=== PATIENT | male | born 1950 | race Two or more races ===

== ENCOUNTER → 2024-09-17 | Outpatient (CLI) | payer OTHER, SELFPAY ==
--- NOTE | 2024-09-17 15:30 | XR_ITS ---
MRI shoulder, left, without contrast. Date and time: September 17, 2024 1538 hours INDICATIONS: Left shoulder blade pain 2 months numbness and paresthesias in the arm radiating to the elbow Technique: Multiple axial, sagittal and coronal sections of the shoulder have been obtained. Siemens high-resolution 1.5 Anu MRI scanner is utilized. Axial fat-suppressed sections, TR 2350, TE 18 T2-weighted coronal fat-saturated images, TR 3500, TE 7100 T1-weighted coronal images, TR 500, TE 15 T2-weighted sagittal fat-saturated images, TR 3500, TE 57 T1-weighted sagittal sections, TR 504, TE 13. Findings: Supraspinatus tendon insertion 10 mm partial-thickness articular surface tear, coronal image 11 Infraspinatus tendon insertion is intact. Subscapularis insertion is intact. Subscapularis bursa is not seen Long head of the biceps is in the bicipital groove. No definite tear of the biceps superior labral anchor is seen. Retraction of the musculotendinous junction of the rotator cuff is not seen . Tendinosis pattern is prominent. Distance between the acromium and humeral head is 9 mm Atrophy of the supraspinatus muscle is mild . Atrophy of the infraspinatus muscle is mild. Sagittal sections demonstrate a horizontal acromion. Acromioclavicular joint demonstrates prominent osteoarthritis. Osacromiale is not identified. Fraying and irregularity anterior superior labral margins. Bony glenoid fossa on the sagittal sections does not demonstrate osseous defect. Occult fracture or area of avascular necrosis is not seen. Acromioclavicular joint separation is not visible. Defect in the posterolateral margin of the humeral head is not seen Impression: 10 mm partial-thickness articular surface tear supraspinatous Fraying and irregularity anterior superior labral margins Prominent rotator cuff tendinosis Significant osteoarthritis acromioclavicular joint
== END | disposition home or self-care (01) ==
LOC: SMRI 14:41
PROVIDERS: Referring Provider Nurse Practitioner Family; Visit Provider Nurse Practitioner Family
DX: M75.102 Unspecified rotator cuff tear or rupture of left shoulder, not specified as traumatic (principal); M19.012 Primary osteoarthritis, left shoulder; M67.814 Other specified disorders of tendon, left shoulder; M25.812 Other specified joint disorders, left shoulder
CPT/HCPCS: 73221

== ENCOUNTER 2024-12-30 09:58 | Emergency (ER) | payer OTHER, SELFPAY ==
[2024-12-30 10:16] VITALS: BP 123/69; PULSE 57; RESP 18; TEMP 36.7; O2SAT 98; BMI 27.2
--- NOTE | 2024-12-30 10:27 | XR_ITS ---
Examination: CT abdomen and pelvis without contrast. Coronal 3-D reconstructions. Sagittal 2-D reconstructions. Date and time of exam:December 30, 2024 at 1056 hours Comparison May 08, 2014 INDICATIONS: Onset mid and lower pelvic pain beginning 5 days ago CTDI: vol (mGy): 9.93 DLP: (mGycm): 658 Technique: Axial images of the abdomen have been obtained, 3 mm slice thickness Intravenous contrast material has not been administered. Low dose protocols were performed. One or more of the following dose reduction techniques were used; automated exposure control, adjustment of the mA and/or KV according to patient size, use of iterative reconstruction technique. Findings: 8 mm pulmonary nodule right lower lobe image 111 2 mm pulmonary nodule left upper lobe image 13 Significant calcification left main left anterior descending coronary arteries Mild enlargement cardiac contour The liver is irregular in contour, no focal liver lesions No gallstones Spleen is not enlarged No pancreatic or adrenal mass Aoyv-ta-[id number] bilateral renal parenchymal scar formation with perinephric stranding No renal or ureteral calculi, no hydronephrosis Abdominal aortic calcification no aneurysmal dilatation Normal appendix 12 mm fat-containing umbilical hernia No bowel obstruction No diverticulitis Prostatomegaly mediolateral dimension 5.7 cm No bladder mass, minimal thickening of the bladder wall Transpedicular lumbar fusion L3-L4 with satisfactory alignment Advanced degenerative disc disease L4-L5 Moderate bilateral hip osteoarthritis IMPRESSION: Noncalcified pulmonary nodules as above, consider elective CT chest without contrast follow-up Significant calcification left main and left anterior descending coronary artery. Suspicious for primary hepatocellular disease [id number] bilateral linear parenchymal scar formation with perinephric stranding, consider urinary tract infection Normal appendix Significant prostatomegaly with minimal thickening of the urinary bladder wall, consider early urinary tract outflow obstruction secondary to prostatomegaly
--- NOTE | 2024-12-30 10:33 | PD.EDRME ---
Rapid Medical Screening Exam RME Arrival date/time: 12/30/24 09:58 74-year-old male presents to the emergency department with complaints of pelvic pain pain with urination and defecation. hx of prostate issues. I have greeted and performed a focused initial assessment of this patient. Initial appropriate labs ordered at this time. A comprehensive ED assessment and evaluation of the patient and analysis of all test and completion of medical decision making process will be conducted by additional ED provider. Chief Complaint: Abdominal Pain Time Seen by Provider: 12/30/24 10:16 Vital signs: Vital Signs Temperature 98.0 F 12/30/24 10:16 Pulse Rate 57 L 12/30/24 10:16 Respiratory Rate 18 12/30/24 10:16 Blood Pressure 123/69 12/30/24 10:16 Pulse Oximetry (%) 98 12/30/24 10:16 Oxygen Delivery Method Room Air 12/30/24 10:16
[2024-12-30 11:14] LABS: Basophils % (Auto) 0 % (0-2.5); Eosinophils # (Auto) 0.3 Thou/mm3 (0.0-0.5); Eosinophils % (Auto) 5 % (0-10); Hematocrit 39.8 % (41.0-53.0); Hemoglobin 13.1 g/dL (13.5-16.0); Immature Granulocytes % (Auto) 0 % (0-0); Immature Granulocytes Auto 0.02 Thou/mm3 (0.00-0.00); Lymphocytes # (Auto) 2.1 Thou/mm3 (1.0-4.8); Lymphocytes % (Auto) 29 % (10-50); Mean Corpuscular HGB Conc 32.9 g/dl (31.0-37.0); Mean Corpuscular Hemoglobin 27.2 pg (25.0-35.0); Mean Corpuscular Volume 83 fL (80-100); Monocytes # (Auto) 0.4 Thou/mm3 (0.0-0.8); Monocytes % (Auto) 6 % (0-12); Neutrophils # (Auto) 4.4 Thou/mm3 (1.8-7.7); Neutrophils % (Auto) 61 % (37-80); Nucleated Red Blood Cell % 0 /100 WBC (0); Platelet Count 238 Thou/mm3 (140-440); Red Blood Count 4.82 Miln/mm3 (4.50-5.90); White Blood Count 7.3 Thou/mm3 (3.8-10.6)
[2024-12-30 11:20] LABS: Prothrombin Time 11.2 Seconds (9.0-12.2)
[2024-12-30 11:24] LABS: Alanine Aminotransferase 44 U/L (10-49); Albumin, Serum 4.4 gm/dL (3.4-4.8); Albumin/Globulin Ratio 1.6 (1.2-2.2); Alkaline Phosphatase 94 U/L (46-116); Anion Gap 6 (7-16); Aspartate Amino Transferase 28 U/L (0-34); BUN/Creatinine Ratio 13 Ratio (12-20); Bilirubin,Total 0.7 mg/dL (0.3-1.2); Blood Urea Nitrogen 16 mg/dL (9-23); Calcium 9.9 mg/dL (8.3-10.6); Calcium (Corrected) 9.9 mg/dL (8.5-10.1); Carbon Dioxide 30.8 mMol/L (20.0-31.0); Chloride 103 mMol/L (98-107); Creatinine (Component) 1.2 mg/dL (0.6-1.3); Estimated Creatinine Clearance 56.6 mL/min (>60); Globulin 2.8 gm/dL (2.3-3.5); Glucose 121 mg/dL (74-106); Lipase 101 U/L (12-53); Osmolality,Calculated 281 (275-295); Potassium 4.9 mMol/L (3.4-5.1); Prostate Specific Antigen 0.57 ng/mL (0-4.00); Sodium 140 mMol/L (136-145); Total Protein 7.2 gm/dL (5.7-8.2); eGFR > 60 See Note
[2024-12-30 11:30] LABS: Collection Type, Urine Clean Catch
[2024-12-30 11:37] LABS: Bilirubin,Urine Negative (Negative); Blood,Urine Negative (Negative); Clarity,Urine Clear (Clear/Hazy); Color,Urine Colorless (Lt Yel-Yel); Glucose, Urine Negative (Negative); Hyaline Casts,Urine < 1 /hpf (0-1); Ketones,Urine Negative (Negative); Leukocyte Esterase,Urine Negative (Negative); Nitrite,Urine Negative (Negative); PH,Urine 6.5 (5.0-7.0); Protein,Urine Negative (Neg - Trace); RBC,Urine 1 /hpf (0-3); Specific Gravity,Urine 1.008 (1.001-1.035); Squamous Epithelial Cell,Urine < 1 /hpf (0-5); Urobilinogen,Urine Negative mg/dL (0.0-1.0); WBC,Urine < 1 /hpf (0-5)
--- NOTE | 2024-12-30 12:16 | PD.EDABDPN ---
ED Abdominal Pain RME/HPI General Chief Complaint: Abdominal Pain Stated complaint: LOWER ABDOMINAL PAIN Time seen by provider: 12/30/24 10:16 Arrival date/time: 12/30/24 09:58 74 year old male with past medical history Turp surgery, enlarge prostate, OA, DDD, UVJ stone, sciatica, constipation present to emergency room with c/o of lower abdominal pain for 1 week. pt has an appointment with PCP tomorrow. pt able to urinated without complications but report feeling sensation of normally fully BM's LOCATION: lower abdominal SEVERITY: Symptoms are described as being severe with limitations on activities of daily living QUALITY: Symptoms are described as being cramping CONTEXT: The patient is unable to identify any inciting events. DURATION/TIMING: The symptoms started approximately 7 day ago and have been waxing/waning but always present without ever completely resolving. ASSOCIATED SYMPTOMS: The patient is unable to identify any other associated symptoms. MODIFYING FACTORS: The patient is unable to identify any alleviating or aggravating symptoms. PERTINENT ROS: no fevers, no anorexia, no nausea or vomiting, no diarrhea, no ripping or tearing sensations, no syncope or presyncopal symptoms, denies trauma, denies genital pain, UTI sx REVIEW OF SYSTEMS: See History of Present Illness - with the exception of those mentioned in the history of present illness, all other systems reviewed and reported as negative GENERAL: In general the patient is awake, interactive, in an emergency department gurney. HEAD/EYES/EARS/NOSE/THROAT: normo-cephalic, atraumatic, mucus membranes are moist, anicteric, palpebral conjunctiva is pink, trachea is midline. CARDIOVASCULAR: regular rate and regular rhythm, no murmurs, heart sounds are not distant, strong pulses in all four extremities that are equal and symmetric bilateral upper and lower extremities, normal capillary refill. CHEST/PULMONARY: normal chest rise and fall, good air movement, clear to auscultation bilaterally, normal inspiratory to expiratory ratios without evidence of respiratory distress. NECK: No midline/Paraspinal tenderness, no step off ROM/Strenght intact No Kernig and bruzinski sign. No trauma ABDOMEN: soft, lower abdominal tenderness, no cva tenderness, no rash no masses appreciated BACK: normal range of motion without pain. NEUROLOGICAL: cranio-facial features are symmetric, moves all four extremities equally without obvious limitations or weakness. EXTREMITY: no tenderness to palpation over the long bones or large joints of the bilateral upper and lower extremities, no joint swelling, no joint erythema, no signs of trauma, no unilateral leg swelling and no peripheral edema. SKIN: warm, dry, well-perfused, no jaundice, no rash, no telangiectasias or petechia. PSYCH: calm, cooperative, no evidence of psychosis or agitation RME / HPI RME / HPI narrative: 12/30/24 09:58 74-year-old male presents to the emergency department with complaints of pelvic pain pain with urination and defecation. hx of prostate issues. I have greeted and performed a focused initial assessment of this patient. Initial appropriate labs ordered at this time. A comprehensive ED assessment and evaluation of the patient and analysis of all test and completion of medical decision making process will be conducted by additional ED provider. Related Data Home Medications ?Medication ?Instructions ?Recorded ?Confirmed finasteride 5 mg tablet (Proscar) 5 mg PO QDAY #0 tabs 05/21/15 08/19/22 tamsulosin 0.4 mg capsule (Flomax) 0.4 mg PO BID ##0 05/23/15 08/19/22 montelukast 10 mg tablet 10 mg PO HS #0 tabs 05/01/16 08/23/22 (Singulair) atenolol 50 mg tablet (Tenormin) 50 mg PO QAM #0 tabs 10/16/17 08/23/22 atorvastatin 40 mg tablet (Lipitor) 40 mg PO HS #0 tabs 10/16/17 08/19/22 hydrochlorothiazide 25 mg tablet 25 mg PO QAM #0 tabs 10/16/17 06/04/22 metformin 1,000 mg tablet 1,000 mg PO BID #0 tabs 10/16/17 08/19/22 (Glucophage) nitroglycerin 0.4 mg sublingual 0.4 mg SL PRN PRN CHEST TIGHTNESS 10/16/17 08/19/22 tablet (Nitrostat) #0 tabs pregabalin 75 mg capsule (Lyrica) 75 mg PO BID 12/16/17 08/19/22 albuterol sulfate 90 mcg/actuation 2 puff inhalation Q6H PRN Wheezing 09/11/18 08/19/22 aerosol inhaler cyclobenzaprine 5 mg tablet 10 mg PO DAILY 09/11/18 08/19/22 lisinopril 5 mg tablet 5 mg PO QDAY 09/12/18 08/23/22 omeprazole 40 mg capsule,delayed 40 mg PO QDAY 07/17/21 08/19/22 release insulin detemir U-100 100 unit/mL 15 unit subcut QPM 11/04/21 08/19/22 subcutaneous solution (Levemir U-100 Insulin) naproxen 500 mg tablet 500 mg PO BID PRN Pain 11/04/21 08/19/22 sumatriptan succinate 25 mg tablet 25 mg PO Q2H PRN Migraine Headache 11/04/21 08/19/22 glipizide 5 mg tablet 5 mg PO BID 12/11/21 08/19/22 dulaglutide 1.5 mg/0.5 mL 1 ea subcut QWEEK 06/04/22 08/19/22 subcutaneous pen injector (Trulicity) Allergies Allergy/AdvReac Type Severity Reaction Status Date / Time levofloxacin Allergy Severe Rash Verified 12/30/24 10:01 Sulfa (Sulfonamide Allergy Severe Rash Verified 12/30/24 10:01 Antibiotics) ciprofloxacin Allergy Mild Rash Verified 12/30/24 10:01 Course Course Course Narrative: review labs, CT Quality Measures none Orders Category Date Time Status NPO STAT Care 12/30/24 10:[address] abdomen pelvis wo con Stat Exams 12/30/24 10:27 Completed CBC Stat Lab 12/30/24 10:51 Completed Comprehensive Metabolic Panel Stat Lab 12/30/24 10:51 Completed Lipase Stat Lab 12/30/24 10:51 Completed PSA [Prostate Specific Antigen] Stat Lab 12/30/24 10:51 Completed Prothrombin Time with INR Stat Lab 12/30/24 10:51 Completed Urinalysis Stat Lab 12/30/24 11:00 Completed Reevaluation(s) Reevaluation #1: pt is comfortable to go home, labs and CT report given to patient to follow up with PCP as schedule tomorrow Vital Signs Vital signs: Vital Signs Temperature 98.0 F 12/30/24 10:16 Pulse Rate 57 L 12/30/24 10:16 Respiratory Rate 18 12/30/24 10:16 Blood Pressure 123/69 12/30/24 10:16 Pulse Oximetry (%) 98 12/30/24 10:16 Oxygen Delivery Method Room Air 12/30/24 10:16 Abdominal Pain MDM MDM Narrative MDM Narrative:: Patient?s symptoms not typical for emergent causes of abdominal pain such as, but not limited to, appendicitis, abdominal aortic aneurysm, surgical biliary disease, pancreatitis, SBO, mesenteric ischemia, serious intra-abdominal bacterial illness, genital torsion. unlikely for obstruction bladder due to patient able to urinated without complications.? Doubt atypical ACS. Pt tolerating PO. Disposition: Patient will be discharged with strict return precautions and follow up with primary MD within 12-24 hours for further evaluation. Patient understands that this still may have an early presentation of an emergent medical condition such as appendicitis that will require a recheck. Patient data External records reviewed:: [facility] previous records Clinical information provided by:: patient and family Social determinants that could affect healthcare access:: none Patient has the following chronic illnesses:: enlarge prostate, UVJ stone How is presenting disease/condition affected by chronic disease/condition?: uneffected by Evaluation data The following diagnostics were reviewed and interpreted by me:: lab results and radiology exam(s) Lab and/or radiology exams considered but not ordered:: n/a Interpretation Summary: CT: Findings: 8 mm pulmonary nodule right lower lobe image 111 2 mm pulmonary nodule left upper lobe image 13 Significant calcification left main left anterior descending coronary arteries Mild enlargement cardiac contour The liver is irregular in contour, no focal liver lesions No gallstones Spleen is not enlarged No pancreatic or adrenal mass Cljo-cc-zovwwimb bilateral renal parenchymal scar formation with perinephric stranding No renal or ureteral calculi, no hydronephrosis Abdominal aortic calcification no aneurysmal dilatation Normal appendix 12 mm fat-containing umbilical hernia No bowel obstruction No diverticulitis Prostatomegaly mediolateral dimension 5.7 cm No bladder mass, minimal thickening of the bladder wall Transpedicular lumbar fusion L3-L4 with satisfactory alignment Advanced degenerative disc disease L4-L5 Moderate bilateral hip osteoarthritis IMPRESSION: Noncalcified pulmonary nodules as above, consider elective CT chest without contrast follow-up Significant calcification left main and left anterior descending coronary artery. Suspicious for primary hepatocellular disease Tlfk-tk-tbyywdjy bilateral linear parenchymal scar formation with perinephric stranding, consider urinary tract infection Normal appendix Significant prostatomegaly with minimal thickening of the urinary bladder wall, consider early urinary tract outflow obstruction secondary to prostatomegaly cbc/cmp/psa wnl urine no infection Medications / Prescriptions Medications or Prescriptions considered but not ordered:: n/a Medication administrations:: n/a Consultations Consultation(s) initiated? (list below): No Diagnosis Differential diagnosis abdominal pain: abdominal pain, acute appendicitis, calculus of kidney, constipation, diverticulitis, gastroenteritis, pancreatitis, small bowel obstruction and other (UTI, UVJ stone, prostatomegaly) Most likely diagnosis given after review of the tests above:: abd pain, ?prostatomegaly Admission Indicated Admission indicated?: not indicated Admission Request Was there a request for admission?: No Disposition Plan Disposition Plan: Discharge Discharge Attestation Discharge Attestation: The patient and all family members were given an opportunity to ask questions and understood the discharge instructions. Discharge instructions specifically effects, indications for sooner follow up or return to the emergency department, and the expected course of current diagnosis. Patient condition: Stable Discharge Plan Plan Patient Disposition: HOME (Self Care) Health Concerns: Follow up with PCP as schedule Return to ED if symptoms worsen Prescriptions/Referrals Prescriptions/Med Rec: No Action finasteride [Proscar] 5 MG tablet 5 mg PO QDAY Qty: 0 tamsulosin [Flomax] 0.4 MG capsule,extended release 24hr 0.4 mg PO BID Qty: 0 montelukast [Singulair] 10 MG tablet 10 mg PO HS Qty: 0 atorvastatin [Lipitor] 40 MG tablet 40 mg PO HS Qty: 0 metformin [Glucophage] 1,000 MG tablet 1,000 mg PO BID Qty: 0 nitroglycerin [Nitrostat] 0.4 MG tablet, sublingual 0.4 mg SL PRN PRN (Reason: CHEST TIGHTNESS) Qty: 0 Rx Instructions: max 3 doses hydrochlorothiazide 25 MG tablet 25 mg PO QAM Qty: 0 atenolol [Tenormin] 50 MG tablet 50 mg PO QAM Qty: 0 pregabalin [Lyrica] 75 mg Capsule 75 mg PO BID sumatriptan succinate 25 mg Tablet 25 mg PO Q2H PRN (Reason: Migraine Headache) Levemir U-100 Insulin 100 unit/mL Solution 15 unit SUBCUT QPM Patient Comments: 15units in morning and 10 HS naproxen 500 mg Tablet 500 mg PO BID PRN (Reason: Pain) Trulicity 1.5 mg/0.5 mL pen injector 1 ea SUBCUT QWEEK Patient Comments: INJECT 1 PEN POR V A SUBCUT IZABELLA ONCE A WEEK albuterol sulfate 90 mcg/actuation Hfa Aerosol Inhaler 2 puff INHALATION Q6H PRN (Reason: Wheezing) cyclobenzaprine 5 mg Tablet 10 mg PO DAILY lisinopril 5 mg Tablet 5 mg PO QDAY omeprazole 40 mg Capsule,Delayed Release(Dr/Ec) 40 mg PO QDAY glipizide 5 mg Tablet 5 mg PO BID Referrals: Ricarda Dominguez NP [Primary Care Provider] - In 1 week Problem List Clinical Impression: Abdominal pain Patient/Caregiver Discharge Instructions Education Materials: Abdominal Pain Print Language: Greek Stand Alone Forms: [employer] Award Info., Patient Portal Info Letter
[2024-12-30 12:27] VITALS: BP 138/69; PULSE 60; RESP 18; TEMP 36.7; O2SAT 98
== END 2024-12-30 12:52 | disposition home or self-care (01) ==
PROVIDERS: Nurse Practitioner Primary Care; Emergency Provider Emergency Medicine; PCP Nurse Practitioner Family
DX: R10.30 Lower abdominal pain, unspecified (principal); N40.0 Benign prostatic hyperplasia without lower urinary tract symptoms; R91.8 Other nonspecific abnormal finding of lung field; I25.10 Atherosclerotic heart disease of native coronary artery without angina pectoris; N28.89 Other specified disorders of kidney and ureter; N32.89 Other specified disorders of bladder
CPT/HCPCS: 36415; 74176; 80053; 81001; 83690; 84153; 85025; 85610; 99284

== ENCOUNTER → 2025-02-07 | Outpatient (CLI) | payer OTHER, SELFPAY ==
--- NOTE | 2025-02-07 12:00 | XR_ITS ---
Examination: CT chest, without intravenous contrast. Sagittal and coronal 2-D reconstructions. Exam date and time: February 07, 2025 1256 hours INDICATIONS: Diagnosis smoking history 10 years CTDI:vol (mGy) 11.8 DLP: (mGycm) 459 Technique: Multiple 3.0 mm axial sections of the chest to been obtained. Bone and lung density settings are obtained. Sagittal and coronal 2-D reconstructions have been obtained. Low dose protocols were performed. One or more of the following dose reduction techniques were used; automated exposure control, adjustment of the mA and/or KV according to patient size, use of iterative reconstruction technique. Findings: No thoracic aortic aneurysm dilatation. Pulmonary artery segments are not enlarged. Significant calcification left main left anterior descending coronary artery. 2 mm pulmonary nodule left midlung image 152 2 mm pulmonary nodule anterior segment left upper lobe image 174 4 mm pulmonary nodule right lower lobe image 256 No pneumonia or pulmonary edema No visualized liver or splenic lesions No gallstones No pancreatic or adrenal mass IMPRESSION: Noncalcified pulmonary nodules as above, with this study as baseline recommend continued 6 month follow-up CT chest without contrast
== END | disposition home or self-care (01) ==
PROVIDERS: PCP Nurse Practitioner Family; Referring Provider Nurse Practitioner Family; Visit Provider Nurse Practitioner Family
DX: R91.8 Other nonspecific abnormal finding of lung field (principal)
CPT/HCPCS: 71250

== ENCOUNTER → 2025-03-13 | Outpatient (CLI) | payer OTHER, SELFPAY ==
--- NOTE | 2025-03-13 12:52 | XR_ITS ---
Examination: Bilateral wrists 6 views TECHNIQUE: AP oblique lateral each wrist total 6 views Date and time: March 13, 2025 1306 hours INDICATION: Wrist pain months. FINDINGS: Mild osteopenia Mild osteoarthritis radiocarpal, navicular trapezium, first carpometacarpal joints No erosive arthritis Soft tissue vascular calcification No fractures IMPRESSION: Osteoarthritis as above
--- NOTE | 2025-03-13 12:52 | XR_ITS ---
Examination: Bilateral hands, 6 views. Technique: AP, Oblique, Lateral each hand total 6 views Date and time of exam: March 13, 2025 12:59 PM Findings: Mild juxta-articular bone demineralization Mild osteoarthritis interphalangeal joints bilaterally No erosive arthritis No fractures No opaque foreign bodies IMPRESSION: Mild osteoarthritis
== END | disposition home or self-care (01) ==
PROVIDERS: PCP Family Medicine; Referring Provider Nurse Practitioner Gerontology; Visit Provider Nurse Practitioner Gerontology
DX: M19.042 Primary osteoarthritis, left hand (principal); M19.041 Primary osteoarthritis, right hand; M19.032 Primary osteoarthritis, left wrist; M19.031 Primary osteoarthritis, right wrist
CPT/HCPCS: 73110; 73130

== ENCOUNTER 2025-04-07 19:19 | Emergency (ER) | payer OTHER, SELFPAY ==
[2025-04-07 19:21] VITALS: BMI 26.7
[2025-04-07 19:39] VITALS: BP 160/69; PULSE 67; RESP 17; TEMP 36.9; O2SAT 97
--- NOTE | 2025-04-07 19:39 | PD.EDMALE ---
ED Male Genitalurinary RME/HPI General Chief complaint: Urogenital-Male Stated complaint: UNABLE TO URINATE, BURNING WITH URINATION Time Seen by Provider: 04/07/25 19:24 Source: patient, RN notes reviewed and old records reviewed Arrival date/time: 04/07/25 19:19 Mode of arrival: ambulatory Limitations: no limitations RME / HPI RME / HPI Narrative: 74yom presents to ED for pain with urination and decreased urine flow since this morning. Hx of BPH and TURP managed by Dr. Jaquez. No fever, n/v, abdominal/flank pain or hematuria reported. 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 Home Medications ?Medication ?Instructions ?Recorded ?Confirmed finasteride 5 mg tablet (Proscar) 5 mg PO QDAY #0 tabs 05/21/15 08/19/22 tamsulosin 0.4 mg capsule (Flomax) 0.4 mg PO BID ##0 05/23/15 08/19/22 montelukast 10 mg tablet 10 mg PO HS #0 tabs 05/01/16 08/23/22 (Singulair) atenolol 50 mg tablet (Tenormin) 50 mg PO QAM #0 tabs 10/16/17 08/23/22 atorvastatin 40 mg tablet (Lipitor) 40 mg PO HS #0 tabs 10/16/17 08/19/22 hydrochlorothiazide 25 mg tablet 25 mg PO QAM #0 tabs 10/16/17 06/04/22 metformin 1,000 mg tablet 1,000 mg PO BID #0 tabs 10/16/17 08/19/22 (Glucophage) nitroglycerin 0.4 mg sublingual 0.4 mg SL PRN PRN CHEST TIGHTNESS 10/16/17 08/19/22 tablet (Nitrostat) #0 tabs pregabalin 75 mg capsule (Lyrica) 75 mg PO BID 12/16/17 08/19/22 albuterol sulfate 90 mcg/actuation 2 puff inhalation Q6H PRN Wheezing 09/11/18 08/19/22 aerosol inhaler cyclobenzaprine 5 mg tablet 10 mg PO DAILY 09/11/18 08/19/22 lisinopril 5 mg tablet 5 mg PO QDAY 09/12/18 08/23/22 omeprazole 40 mg capsule,delayed 40 mg PO QDAY 07/17/21 08/19/22 release insulin detemir U-100 100 unit/mL 15 unit subcut QPM 11/04/21 08/19/22 subcutaneous solution (Levemir U-100 Insulin) naproxen 500 mg tablet 500 mg PO BID PRN Pain 11/04/21 08/19/22 sumatriptan succinate 25 mg tablet 25 mg PO Q2H PRN Migraine Headache 11/04/21 08/19/22 glipizide 5 mg tablet 5 mg PO BID 12/11/21 08/19/22 dulaglutide 1.5 mg/0.5 mL 1 ea subcut QWEEK 06/04/22 08/19/22 subcutaneous pen injector (Trulicity) Allergies Allergy/AdvReac Type Severity Reaction Status Date / Time levofloxacin Allergy Severe Rash Verified 04/07/25 19:21 Sulfa (Sulfonamide Allergy Severe Rash Verified 04/07/25 19:21 Antibiotics) ciprofloxacin Allergy Mild Rash Verified 04/07/25 19:21 Review of Systems Review of Systems Systems Reviewed: All systems reviewed, normal except as documented Constitutional Constitutional: Denies fever(s) Gastrointestinal Gastrointestinal: Denies abdominal pain, Denies nausea and Denies vomiting Genitourinary Genitourinary: Reports difficulty urinating, Reports dysuria, Denies hematuria and Reports oliguria Past Medical History Past Medical History NEUROLOGIC: Positive Migraine (DUE TO SINUS ISSUES) CARDIAC: Positive Cardiac Disorders and Hypertension (TAKES ATENOLOL) GASTROINTESTINAL: Positive Ulcer (TAKES OMEPRAZOLE) GENITOURINARY: Positive Genitourinary Disorders and Benign Prostatic Hyperplasia (TAKES MED) MUSCULOSKELETAL: Positive Musculoskeletal Disorders, Arthritis and Carpal Tunnel Syndrome (LEFT 2011) ENDOCRINE: Positive Endocrine Disorders and Diabetes Mellitus Type 2 (TAKES PO MED AND INSULIN) OTHER HISTORY: Positive Chicken Pox Family History FAMILY HISTORY: Positive Family Cardiac Disorders (MOTHER,FATHER,SISTER,BROTHER) and Family Surgery (FATHER) Surgical History SURGICAL: Positive Carotid Endarterectomy (LEFT (CLOG ARTERY) 06/[address] [facility]) and Transurethral Resection (?) Social History SMOKING STATUS: Never smoker Travel History EBOLA RISK: No ED Exam General Limitations: Present no limitations General appearance: Present alert and in no apparent distress Head Head exam: Present atraumatic and normocephalic Eye Eye exam: Present normal appearance, PERRL and EOMI ENT ENT exam: Present normal exam and mucous membranes moist Neck Neck exam: Present normal inspection and full ROM Chest Chest inspection: Present normal inspection and symmetric chest wall rise Respiratory Respiratory exam: Present normal lung sounds bilaterally; Absent respiratory distress Cardiovascular Cardiovascular exam: Present regular rate and normal rhythm Abdominal Exam Abdominal exam: Present soft; Absent distention, tenderness, guarding or rebound Extremities Exam Extremities exam: Present normal inspection and full ROM Back Exam Back exam: Absent CVA tenderness (R) or CVA tenderness (L) Neurological Exam Neurological exam: Present alert and oriented X3 Psychiatric Psychiatric exam: Present normal affect and normal mood Skin Skin exam: Present warm, dry, intact and normal color Course Course Course Narrative: 2205: 583cc urine on bladder scan, will place bliss Quality Measures none Orders Category Date Time Status Bliss [Urinary Catheter] QS Care 04/07/25 22:08 Completed CBC Stat Lab 04/07/25 19:48 Completed CMP [Comprehensive Metabolic Panel] Stat Lab 04/07/25 19:48 Completed UA [Urinalysis] Stat Lab 04/07/25 20:08 Completed Urine Culture Stat Lab 04/07/25 20:08 Completed Lidocaine Jelly 2% Urojet [Xylocaine Jelly 2% Urojet] Med 04/07/25 23:19 Discontinued See Dose Instructions TOP X1 ONE Vital Signs Vital signs: Vital Signs Temperature 98.5 F 04/07/25 19:39 Pulse Rate 67 04/07/25 19:39 Respiratory Rate 17 04/07/25 19:39 Blood Pressure 160/69 H 04/07/25 19:39 Pulse Oximetry (%) 97 04/07/25 19:39 Oxygen Delivery Method Room Air 04/07/25 19:39 Urogenital - Male MDM Narrative MDM Narrative:: 74yom presents to ED for pain with urination and decreased urine flow since this morning. Hx of BPH and TURP managed by Dr. Jaquez. No fever, n/v, abdominal/flank pain or hematuria reported. 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 UA is negative, urine culture sent and pending. Daughter states patient already has scheduled appt with Dr. Jaquez next week. Stable for dc, RTED precautions given. Patient data External records reviewed:: [facility] previous records (12/30/24 ED visit for abdominal pain) Clinical information provided by:: patient and family (daughter) Social determinants that could affect healthcare access:: none Patient has the following chronic illnesses:: BPH How is presenting disease/condition affected by chronic disease/condition?: caused by Evaluation data The following diagnostics were reviewed and interpreted by me:: lab results Lab and/or radiology exams considered but not ordered:: CT abd/pelvis: non-surgical abdomen on exam Interpretation Summary: UA negative for leuks, nitrities Medications / Prescriptions Medications or Prescriptions considered but not ordered:: no antibiotics recommended at this time Medication administrations:: Medication Administration History Discontinued Medications Lidocaine HCl (Lidocaine Jelly 2% (Urojet) 10 Ml Tube) 0 ml TOP X1 ONE Stop: 04/07/25 23:20 Last Admin: 04/07/25 23:30 Dose: 10 ml Documented By: NATE above medication administered in ED Consultations Consultation(s) initiated? (list below): No Diagnosis Urogenital Male Differential Diagnosis: urinary tract infection, urethritis, epididymitis, prostatitis and acute retention of urine Most likely diagnosis given after review of the tests above:: urinary retention Admission Indicated Admission indicated?: not indicated Admission Request Was there a request for admission?: No Disposition Plan Disposition Plan: Discharge Discharge Attestation Discharge Attestation: The patient and all family members were given an opportunity to ask questions and understood the discharge instructions. Discharge instructions specifically effects, indications for sooner follow up or return to the emergency department, and the expected course of current diagnosis. Patient condition: Stable Discharge Plan Plan Patient Disposition: HOME (Self Care) Patient condition on transfer: Stable Prescriptions/Referrals Prescriptions/Med Rec: No Action finasteride [Proscar] 5 MG tablet 5 mg PO QDAY Qty: 0 tamsulosin [Flomax] 0.4 MG capsule,extended release 24hr 0.4 mg PO BID Qty: 0 montelukast [Singulair] 10 MG tablet 10 mg PO HS Qty: 0 atorvastatin [Lipitor] 40 MG tablet 40 mg PO HS Qty: 0 metformin [Glucophage] 1,000 MG tablet 1,000 mg PO BID Qty: 0 nitroglycerin [Nitrostat] 0.4 MG tablet, sublingual 0.4 mg SL PRN PRN (Reason: CHEST TIGHTNESS) Qty: 0 Rx Instructions: max 3 doses hydrochlorothiazide 25 MG tablet 25 mg PO QAM Qty: 0 atenolol [Tenormin] 50 MG tablet 50 mg PO QAM Qty: 0 pregabalin [Lyrica] 75 mg Capsule 75 mg PO BID sumatriptan succinate 25 mg Tablet 25 mg PO Q2H PRN (Reason: Migraine Headache) Levemir U-100 Insulin 100 unit/mL Solution 15 unit SUBCUT QPM Patient Comments: 15units in morning and 10 HS naproxen 500 mg Tablet 500 mg PO BID PRN (Reason: Pain) Trulicity 1.5 mg/0.5 mL pen injector 1 ea SUBCUT QWEEK Patient Comments: INJECT 1 PEN POR V A SUBCUT IZABELLA ONCE A WEEK albuterol sulfate 90 mcg/actuation Hfa Aerosol Inhaler 2 puff INHALATION Q6H PRN (Reason: Wheezing) cyclobenzaprine 5 mg Tablet 10 mg PO DAILY lisinopril 5 mg Tablet 5 mg PO QDAY omeprazole 40 mg Capsule,Delayed Release(Dr/Ec) 40 mg PO QDAY glipizide 5 mg Tablet 5 mg PO BID Referrals: Talat Jaquez MD [Physician] - In 1 week (Call to schedule an appointment for a visit.) Adrián Carrillo MD [Primary Care Provider] - In 1 week Problem List Clinical Impression: Acute urinary retention Patient/Caregiver Discharge Instructions Education Materials: ED Urinary Retention, Male Print Language: French Stand Alone Forms: Katt Award Info., Patient Portal Info Letter PA/REGISTERED RESPIRATORY TECHNICIAN Supervising Physician PA/REGISTERED RESPIRATORY TECHNICIAN Supervising Physician: Edinson
[2025-04-07 20:00] LABS: Basophils % (Auto) 0 % (0-2.5); Eosinophils # (Auto) 0.2 Thou/mm3 (0.0-0.5); Eosinophils % (Auto) 3 % (0-10); Hematocrit 36.6 % (41.0-53.0); Immature Granulocytes % (Auto) 0 % (0-0); Immature Granulocytes Auto 0.03 Thou/mm3 (0.00-0.00); Lymphocytes # (Auto) 2.1 Thou/mm3 (1.0-4.8); Lymphocytes % (Auto) 31 % (10-50); Mean Corpuscular HGB Conc 32.8 g/dl (31.0-37.0); Mean Corpuscular Hemoglobin 27.5 pg (25.0-35.0); Mean Corpuscular Volume 84 fL (80-100); Monocytes # (Auto) 0.5 Thou/mm3 (0.0-0.8); Monocytes % (Auto) 7 % (0-12); Neutrophils # (Auto) 4.1 Thou/mm3 (1.8-7.7); Neutrophils % (Auto) 59 % (37-80); Nucleated Red Blood Cell % 0 /100 WBC (0); Platelet Count 227 Thou/mm3 (140-440); RDW Standard Deviation 49.9 fL (35.1-43.9); Red Blood Count 4.37 Miln/mm3 (4.50-5.90); White Blood Count 6.9 Thou/mm3 (3.8-10.6)
[2025-04-07 20:16] LABS: Collection Type, Urine Clean Catch; Squamous Epithelial Cell,Urine 0 /hpf (0-5)
[2025-04-07 20:16] LABS: Alanine Aminotransferase 38 U/L (10-49); Albumin, Serum 4.5 gm/dL (3.4-4.8); Albumin/Globulin Ratio 2.3 (1.2-2.2); Alkaline Phosphatase 79 U/L (46-116); Anion Gap 8 (7-16); Aspartate Amino Transferase 27 U/L (0-34); BUN/Creatinine Ratio 18 Ratio (12-20); Bilirubin,Total 0.6 mg/dL (0.3-1.2); Blood Urea Nitrogen 22 mg/dL (9-23); Chloride 105 mMol/L (98-107); Creatinine (Component) 1.2 mg/dL (0.6-1.3); Estimated Creatinine Clearance 56.6 mL/min (>60); Glucose 155 mg/dL (74-106); Osmolality,Calculated 280 (275-295); Potassium 4.3 mMol/L (3.4-5.1); Sodium 137 mMol/L (136-145); Total Protein 6.5 gm/dL (5.7-8.2); eGFR > 60 See Note
[2025-04-07 20:24] LABS: Bilirubin,Urine Negative (Negative); Blood,Urine Negative (Negative); Clarity,Urine Clear (Clear/Hazy); Color,Urine Yellow (Lt Yel-Yel); Glucose, Urine Trace (Negative); Hyaline Casts,Urine < 1 /hpf (0-1); Ketones,Urine Negative (Negative); Leukocyte Esterase,Urine Negative (Negative); Nitrite,Urine Negative (Negative); PH,Urine 5.5 (5.0-7.0); Protein,Urine Trace (Neg - Trace); RBC,Urine 3 /hpf (0-3); Specific Gravity,Urine 1.027 (1.001-1.035); Urobilinogen,Urine Negative mg/dL (0.0-1.0); WBC,Urine < 1 /hpf (0-5)
[2025-04-07] MEDS: LIDOCAINE JELLY 2% (Urojet) 10 ML TUBE TOP (23:30)
--- NOTE | 2025-04-07 23:50 | PC.NURSE ---
540ml output upon FC insertion. FC intact, patent and draining to gravity. Pale yellow urine.
== END 2025-04-07 23:52 | disposition home or self-care (01) ==
PROVIDERS: Physician Assistant; Emergency Provider Emergency Medicine; PCP Family Medicine
DX: N40.1 Benign prostatic hyperplasia with lower urinary tract symptoms (principal); R33.8 Other retention of urine
CPT/HCPCS: 51702; 36415; 80053; 81001; 85025; 87086; 99283; A4314

== ENCOUNTER 2025-04-23 17:28 | Emergency (ER) | payer OTHER, SELFPAY ==
[2025-04-23 17:29] VITALS: BMI 27.6
[2025-04-23 17:53] VITALS: BP 116/53; PULSE 71; RESP 18; TEMP 37.2; O2SAT 96
--- NOTE | 2025-04-23 18:02 | XR_ITS ---
Examination: Testicular sonography complete TECHNIQUE: Duval scale sonographic images testes, associated to inflow venous outflow Doppler spectrum analysis color flow analysis Date and time: April 23, 2025 1912 hours INDICATIONS: Bilateral testicular pain and painful urination one month FINDINGS: Right testis is 4.7 cm epididymis 16 mm Moderate varicocele No testicular mass Arterial flow to the skull Left testis 4.8 cm epididymis 14 mm Arterial flow to the testicle. No testicular Mass. Moderate varicocele IMPRESSION: No testicular torsion or testicular Mass. Moderate bilateral varicoceles
--- NOTE | 2025-04-23 18:03 | PD.EDRME ---
Rapid Medical Screening Exam E Arrival date/time: 04/23/25 17:28 This is a case of 74-year-old male with history of urinary retention came in in the emergency room due to scrotal pain and painful urination patient had Owens catheter since last month worsening of the pain this patient decided to start consult here in the emergency room Chief Complaint: General Adult/Misc Complain Vital signs: Vital Signs Temperature 99.0 F 04/23/25 17:53 Pulse Rate 71 04/23/25 17:53 Respiratory Rate 18 04/23/25 17:53 Blood Pressure 116/53 L 04/23/25 17:53 Pulse Oximetry (%) 96 04/23/25 17:53 Oxygen Delivery Method Room Air 04/23/25 17:53
[2025-04-23 18:28] LABS: Basophils # (Auto) 0.0 Thou/mm3 (0.0-0.2); Basophils % (Auto) 0 % (0-2.5); Eosinophils # (Auto) 0.3 Thou/mm3 (0.0-0.5); Eosinophils % (Auto) 4 % (0-10); Hematocrit 34.9 % (41.0-53.0); Hemoglobin 11.7 g/dL (13.5-16.0); Immature Granulocytes Auto 0.01 Thou/mm3 (0.00-0.00); Lymphocytes # (Auto) 1.8 Thou/mm3 (1.0-4.8); Lymphocytes % (Auto) 23 % (10-50); Mean Corpuscular HGB Conc 33.5 g/dl (31.0-37.0); Mean Corpuscular Hemoglobin 27.5 pg (25.0-35.0); Mean Corpuscular Volume 82 fL (80-100); Monocytes # (Auto) 0.4 Thou/mm3 (0.0-0.8); Monocytes % (Auto) 6 % (0-12); Neutrophils # (Auto) 5.3 Thou/mm3 (1.8-7.7); Neutrophils % (Auto) 68 % (37-80); Nucleated Red Blood Cell # 0.00 Thou/mm3 (0.00-0.00); Nucleated Red Blood Cell % 0 /100 WBC (0); Platelet Count 217 Thou/mm3 (140-440); RDW Standard Deviation 47.0 fL (35.1-43.9); Red Blood Count 4.26 Miln/mm3 (4.50-5.90); White Blood Count 7.8 Thou/mm3 (3.8-10.6)
[2025-04-23 18:42] LABS: Alanine Aminotransferase 24 U/L (10-49); Albumin, Serum 4.2 gm/dL (3.4-4.8); Albumin/Globulin Ratio 1.8 (1.2-2.2); Alkaline Phosphatase 102 U/L (46-116); Anion Gap 10 (7-16); Aspartate Amino Transferase 22 U/L (0-34); BUN/Creatinine Ratio 18 Ratio (12-20); Bilirubin,Total 0.3 mg/dL (0.3-1.2); Blood Urea Nitrogen 24 mg/dL (9-23); Calcium 9.6 mg/dL (8.3-10.6); Calcium (Corrected) 9.6 mg/dL (8.5-10.1); Carbon Dioxide 24.7 mMol/L (20.0-31.0); Chloride 106 mMol/L (98-107); Creatinine (Component) 1.3 mg/dL (0.6-1.3); Estimated Creatinine Clearance 52.3 mL/min (>60); Globulin 2.4 gm/dL (2.3-3.5); Glucose 194 mg/dL (74-106); Osmolality,Calculated 290 (275-295); Potassium 4.1 mMol/L (3.4-5.1); Sodium 141 mMol/L (136-145); Total Protein 6.6 gm/dL (5.7-8.2); eGFR 57 See Note
[2025-04-23 20:02] LABS: Collection Type, Urine Clean Catch; Squamous Epithelial Cell,Urine 0 /hpf (0-5)
[2025-04-23 20:26] LABS: Bacteria,Urine 3+; Bilirubin,Urine Negative (Negative); Blood,Urine 2+ (Negative); Clarity,Urine Clear (Clear/Hazy); Color,Urine Lt-Yellow (Lt Yel-Yel); Glucose, Urine Negative (Negative); Ketones,Urine Negative (Negative); Leukocyte Esterase,Urine Positive (Negative); Nitrite,Urine Positive (Negative); PH,Urine 5.5 (5.0-7.0); Protein,Urine 1+ (Neg - Trace); RBC,Urine 25 /hpf (0-3); Specific Gravity,Urine 1.023 (1.001-1.035); Urobilinogen,Urine Negative mg/dL (0.0-1.0); WBC,Urine 45 /hpf (0-5)
[2025-04-23 20:27] LABS: Culture Indicated,Urine Yes
--- NOTE | 2025-04-23 20:57 | PD.EDMALE ---
ED Male Genitalurinary RME/HPI General Chief complaint: General Adult/Misc Complain Stated complaint: WANTS CORONA REMOVED; CAUSING DISCOMFORT Time Seen by Provider: 04/23/25 19:33 Arrival date/time: 04/23/25 17:28 RME / HPI RME / HPI Narrative: 04/23/25 17:28 This is a case of 74-year-old male with history of urinary retention came in in the emergency room due to scrotal pain and painful urination patient had Corona catheter since last month worsening of the pain this patient decided to start consult here in the emergency room ------ This section includes all my notes and documentations, including HPI, PE, and ED course. Mack Gómez MD HPI: 74yo male with a history of BPH presents to the ED for a chief complaint of painful urination. Patient had a corona catheter placed here on 04/07/25 and developed scrotal pain and painful urination today. No abdominal pain, back pain, nausea, vomiting, or fever. Patient is requesting his corona catheter to be removed. No other complaints reported. ROS: All negative except as documented in HPI. Physical Exam: General: Alert and oriented. No acute distress when remaining still. Eyes: Conjunctivae and lids clear. ENT: No nasal congestion. Neck: Supple. Heart: RRR. Lungs: No respiratory distress. Good air movement. No rhonchi, wheezing, rales. Abdomen: Soft and nontender. Normal bowel sounds. No distension. No rebound or guarding. Back: No CVA tenderness. Skin: Warm and dry. Neuro: Alert and oriented X 3. I reviewed all diagnostic test results. My review of the scrotal US report is NAD. Blood tests are unremarkable. UA remarkable for positive nitrites, positive leukocyte esterase, 25 RBCs, 45 WBCs, and 3+ bacteria. At this point, diagnoses include UTI. Treatment here included rocephin. Patient also requested removal of his Corona catheter. Discussed the potential risks, including urinary retention and needing another Corona catheter. He understood and requested the removal. Corona catheter removed successfully. Significant improvement noted. Recommended outpatient management. Based on my best medical judgment, made decision no further evaluation or treatment indicated at this time. Patient understands and agrees to the discharge instructions customized and printed, see below. Discharge instructions from Dr. Gómez: 1. After evaluation, you have UTI (see attached handout). 2. Take cefdinir to kill the germs causing the infection. Increase oral fluid to flush it out. Maintain clear urine. If dark or yellow, increase oral fluid. 3. As you requested, your urinary catheter was removed. 4. See a private doctor on 04/26/2025 for recheck. Ask to check the final urine culture results from today to make sure cefdinir doesn't need to be changed due to resistance. 5. Seek immediate medical care with urinary retention, fever, or with any concerns. Mack Gómez MD Related Data Home Medications ?Medication ?Instructions ?Recorded ?Confirmed finasteride 5 mg tablet (Proscar) 5 mg PO QDAY #0 tabs 05/21/15 08/19/22 tamsulosin 0.4 mg capsule (Flomax) 0.4 mg PO BID ##0 05/23/15 08/19/22 montelukast 10 mg tablet 10 mg PO HS #0 tabs 05/01/16 08/23/22 (Singulair) atenolol 50 mg tablet (Tenormin) 50 mg PO QAM #0 tabs 10/16/17 08/23/22 atorvastatin 40 mg tablet (Lipitor) 40 mg PO HS #0 tabs 10/16/17 08/19/22 hydrochlorothiazide 25 mg tablet 25 mg PO QAM #0 tabs 10/16/17 06/04/22 metformin 1,000 mg tablet 1,000 mg PO BID #0 tabs 10/16/17 08/19/22 (Glucophage) nitroglycerin 0.4 mg sublingual 0.4 mg SL PRN PRN CHEST TIGHTNESS 10/16/17 08/19/22 tablet (Nitrostat) #0 tabs pregabalin 75 mg capsule (Lyrica) 75 mg PO BID 12/16/17 08/19/22 albuterol sulfate 90 mcg/actuation 2 puff inhalation Q6H PRN Wheezing 09/11/18 08/19/22 aerosol inhaler cyclobenzaprine 5 mg tablet 10 mg PO DAILY 09/11/18 08/19/22 lisinopril 5 mg tablet 5 mg PO QDAY 09/12/18 08/23/22 omeprazole 40 mg capsule,delayed 40 mg PO QDAY 07/17/21 08/19/22 release insulin detemir U-100 100 unit/mL 15 unit subcut QPM 11/04/21 08/19/22 subcutaneous solution (Levemir U-100 Insulin) naproxen 500 mg tablet 500 mg PO BID PRN Pain 11/04/21 08/19/22 sumatriptan succinate 25 mg tablet 25 mg PO Q2H PRN Migraine Headache 11/04/21 08/19/22 glipizide 5 mg tablet 5 mg PO BID 12/11/21 08/19/22 dulaglutide 1.5 mg/0.5 mL 1 ea subcut QWEEK 06/04/22 08/19/22 subcutaneous pen injector (Trulicity) Previous Rx's ?Medication ?Instructions ?Recorded cefdinir 300 mg capsule 300 mg PO BID #14 caps 04/23/25 Allergies Allergy/AdvReac Type Severity Reaction Status Date / Time levofloxacin Allergy Severe Rash Verified 04/23/25 17:32 Sulfa (Sulfonamide Allergy Severe Rash Verified 04/23/25 17:32 Antibiotics) ciprofloxacin Allergy Mild Rash Verified 04/23/25 17:32 Review of Systems Review of Systems Systems Reviewed: All systems reviewed, normal except as documented Past Medical History Past Medical History NEUROLOGIC: Positive Migraine (DUE TO SINUS ISSUES); Negative Neurological Disorders, Cerebrovascular Accident, Seizures or Epilepsy CARDIAC: Positive Cardiac Disorders, Hypercholesterolemia (TAKES MED) and Hypertension (TAKES ATENOLOL); Negative Myocardial Infarction, Congestive Heart Failure, Edema, Cellulitis or Varicose Veins RESPIRATORY: Positive Asthma (HAS INHALER); Negative Chronic Obstructive Pulmonary Disease (COPD), Pneumonia, Tuberculosis or Sleep Apnea GASTROINTESTINAL: Positive Gastrointestinal Disorders, Ulcer (TAKES OMEPRAZOLE) and Gastroesophageal Reflux Disease; Negative Hepatitis GENITOURINARY: Positive Genitourinary Disorders and Benign Prostatic Hyperplasia (TAKES MED); Negative Renal Disease MUSCULOSKELETAL: Positive Musculoskeletal Disorders, Arthritis and Carpal Tunnel Syndrome (LEFT 2011) ENDOCRINE: Positive Endocrine Disorders and Diabetes Mellitus Type 2 (TAKES PO MED AND INSULIN); Negative Diabetes Mellitus Type 1 HEMATOLOGIC: Negative Blood Disorders, Anemia or Leukemia PSYCHO/SOCIAL: Negative Depression, Anxiety or Post Traumatic Stress Disorder OTHER HISTORY: Positive Chicken Pox; Negative Hospitalization, Autoimmune Disease, Shingles, Falls, Blood Transfusions, Blood Transfusion Reaction, Anesthesia Reactions, Chemotherapy, Radiation Therapy, MRSA, Measles, Mumps or Cancer Family History FAMILY HISTORY: Positive Family Cardiac Disorders (MOTHER,FATHER,SISTER,BROTHER), Family Gastrointestinal Problems (FATHER (GERD?)) and Family Surgery (FATHER); Negative Family Psychiatric Problems, Family Respiratory Disorders, Family Cancer or Family Anesthesia Reaction Surgical History SURGICAL: Positive Carotid Endarterectomy (LEFT (CLOG ARTERY) 06/26 AT [facility]), Eye Surgery (RIGHT PTERYGIUM), Transurethral Resection (?) and Joint Replacement; Negative Pacemaker or Abdominal Surgery Social History SMOKING STATUS: Former smoker ED Exam Narrative Physical exam: As noted in HPI. Course Quality Measures none Orders Category Date Time Status Miscellaneous Nursing Order NOW Care 04/23/25 20:57 Completed US scrotum Stat Exams 04/23/25 18:02 Completed CBC Stat Lab 04/23/25 18:09 Completed CMP [Comprehensive Metabolic Panel] Stat Lab 04/23/25 18:09 Completed UA, C/S IF [Urinalysis, C/S if Indicated] Stat Lab 04/23/25 19:53 Completed cefTRIAXone [Rocephin] 1,000 mg Med 04/23/25 21:16 Discontinued Lidocaine 1% 20 ml [Xylocaine 1% 20 ML] 2.1 ml IM X1 cefTRIAXone/D5w 1gm IV premix [Rocephin/D5w 1gm IV Med 04/23/25 20:56 Discontinued premix] 1 g in 50 ml IV X1 Vital Signs Vital signs: Vital Signs Temperature 99.0 F 04/23/25 17:53 Pulse Rate 71 04/23/25 17:53 Respiratory Rate 18 04/23/25 17:53 Blood Pressure 116/53 L 04/23/25 17:53 Pulse Oximetry (%) 96 04/23/25 17:53 Oxygen Delivery Method Room Air 04/23/25 17:53 Urogenital - Male MDM Narrative MDM Narrative:: 74yo male with a history of BPH presents to the ED for a chief complaint of painful urination. Patient had a corona catheter placed here on 04/07/25 and developed scrotal pain and painful urination today. No abdominal pain, back pain, nausea, vomiting, or fever. Patient is requesting his corona catheter to be removed. No other complaints reported. Patient data External records reviewed:: [facility] previous records (Per chart review, patient was seen here on 04/07/25 for acute urinary retention.) Clinical information provided by:: patient and family Social determinants that could affect healthcare access:: none Patient has the following chronic illnesses:: BPH, HTN, HLD How is presenting disease/condition affected by chronic disease/condition?: caused by Evaluation data The following diagnostics were reviewed and interpreted by me:: lab results and radiology exam(s) Lab and/or radiology exams considered but not ordered:: none Interpretation Summary: I reviewed all diagnostic test results. My review of the scrotal US report is moderate bilateral varicoceles. Blood tests are unremarkable. UA remarkable for positive nitrites, positive leukocyte esterase, 25 RBCs, 45 WBCs, and 3+ bacteria. Medications / Prescriptions Medications or Prescriptions considered but not ordered:: none Medication administrations:: Medication Administration History Discontinued Medications Ceftriaxone Sodium 1,000 mg/ (Lidocaine HCl 2.1 ml) 0 mg IM X1 ONE Stop: 04/23/25 21:17 Last Admin: 04/23/25 21:37 Dose: 2.1 mg Documented By: MAGGIE Ceftriaxone Sodium/Dextrose (Rocephin/D5w 1gm Iv Premix) 1 g in 50 mls @ 100 mls/hr IV X1 ONE Stop: 04/23/25 21:25 Last Admin: 04/23/25 21:41 Dose: Not Given Documented By: MAGGIE Non-Admin Reason: Discontinued Rocephin Consultations Consultation(s) initiated? (list below): No Diagnosis Urogenital Male Differential Diagnosis: urinary tract infection, urethritis, epididymitis, prostatitis, acute retention of urine, inguinal hernia and other (Testicular torsion) Most likely diagnosis given after review of the tests above:: UTI Admission Indicated Admission indicated?: not indicated Explain why admission is indicated or not indicated:: With significant improvement and no condition needing emergent intervention, there was no indication for admission. Admission Request Was there a request for admission?: No Disposition Plan Disposition Plan: Discharge Discharge Attestation Discharge Attestation: The patient and all family members were given an opportunity to ask questions and understood the discharge instructions. Discharge instructions specifically effects, indications for sooner follow up or return to the emergency department, and the expected course of current diagnosis. Patient condition: Stable Discharge Plan Plan Patient Disposition: HOME (Self Care) Prescriptions/Referrals Prescriptions/Med Rec: New cefdinir 300 mg capsule 300 mg PO BID Qty: 14 0RF No Action finasteride [Proscar] 5 MG tablet 5 mg PO QDAY Qty: 0 tamsulosin [Flomax] 0.4 MG capsule,extended release 24hr 0.4 mg PO BID Qty: 0 montelukast [Singulair] 10 MG tablet 10 mg PO HS Qty: 0 atorvastatin [Lipitor] 40 MG tablet 40 mg PO HS Qty: 0 metformin [Glucophage] 1,000 MG tablet 1,000 mg PO BID Qty: 0 nitroglycerin [Nitrostat] 0.4 MG tablet, sublingual 0.4 mg SL PRN PRN (Reason: CHEST TIGHTNESS) Qty: 0 Rx Instructions: max 3 doses hydrochlorothiazide 25 MG tablet 25 mg PO QAM Qty: 0 atenolol [Tenormin] 50 MG tablet 50 mg PO QAM Qty: 0 pregabalin [Lyrica] 75 mg Capsule 75 mg PO BID sumatriptan succinate 25 mg Tablet 25 mg PO Q2H PRN (Reason: Migraine Headache) Levemir U-100 Insulin 100 unit/mL Solution 15 unit SUBCUT QPM Patient Comments: 15units in morning and 10 HS naproxen 500 mg Tablet 500 mg PO BID PRN (Reason: Pain) Trulicity 1.5 mg/0.5 mL pen injector 1 ea SUBCUT QWEEK Patient Comments: INJECT 1 PEN POR V A SUBCUT IZABELLA ONCE A WEEK albuterol sulfate 90 mcg/actuation Hfa Aerosol Inhaler 2 puff INHALATION Q6H PRN (Reason: Wheezing) cyclobenzaprine 5 mg Tablet 10 mg PO DAILY lisinopril 5 mg Tablet 5 mg PO QDAY omeprazole 40 mg Capsule,Delayed Release(Dr/Ec) 40 mg PO QDAY glipizide 5 mg Tablet 5 mg PO BID Referrals: Adrián Carrillo MD [Primary Care Provider] - In 1 week Problem List Clinical Impression: UTI (urinary tract infection) Patient/Caregiver Discharge Instructions Discharge Activity: activity as tolerated Education Materials: ED Urinary Retention, Male, ED Bladder Infection, Male (Adult) Additional Instructions: Discharge instructions from Dr. Gómez: 1. After evaluation, you have UTI (see attached handout).? 2. Take cefdinir to kill the germs causing the infection.? Increase oral fluid to flush it out.? Maintain clear urine.? If dark or yellow, increase oral fluid. 3. As you requested, your urinary catheter was removed. 4. See a private doctor on 04/26/2025 for recheck. Ask to check the final urine culture results from today to make sure cefdinir doesn't need to be changed due to resistance. 5. Seek immediate medical care with urinary retention, fever, or with any concerns. Instrucciones de adolfo del Dr. Gómez: 1. Despu?s de la evaluaci?n, presenta paxton infecci?n urinaria (consulte el folleto adjunto). 2. Chaires cefdinir para eliminar los g?rmenes que causan la infecci?n. Aumente la cantidad de fluidos bucales para eliminarlos. Mantenga la orina fred. Si es oscura o amarilla, aumente la cantidad de fluidos bucales. 3. Johanny solicit?, le retiraron la sonda urinaria. 4. Consulte con un m?dico particular el 26/04/2025 para paxton nueva revisi?n. Solicite que revisen los resultados finales del urocultivo de [facility] para asegurarse de que no sea necesario cambiar la dosis de cefdinir debido a la resistencia. 5. Busque atenci?n m?dica inmediata si presenta retenci?n urinaria, fiebre o cualquier otra inquietud. Print Language: Danish Stand Alone Forms: Katt Award Info., Patient Portal Info Letter
[2025-04-23] MEDS: cefTRIAXone 1,000 MG, LIDOCAINE 1% 20 ML 2.1 ML IM (21:37)
== END 2025-04-23 21:47 | disposition home or self-care (01) ==
PROVIDERS: Nurse Practitioner Family; Emergency Provider Emergency Medicine; PCP Family Medicine
DX: N39.0 Urinary tract infection, site not specified (principal); I86.1 Scrotal varices; N40.1 Benign prostatic hyperplasia with lower urinary tract symptoms; R33.8 Other retention of urine
CPT/HCPCS: 36415; 76870; 80053; 81001; 85025; 87086; 96372; 99283; J0696; J3490

== ENCOUNTER → 2025-04-24 | Outpatient (CLI) | payer OTHER, SELFPAY ==
--- NOTE | 2025-04-24 08:45 | XR_ITS ---
Examination: Abdomen sonogram, complete Date and time of exam: April 24, 2025 0830 hours INDICATIONS: Mid abdominal pain beginning 4 months ago. Technique: Multiple real-time grayscale transabdominal sonographic images of the abdomen have been obtained. Findings: Normal gallbladder. Normal common bile duct 0.5 cm Pancreatic head 2.0 cm Aorta not enlarged. Liver 17.1 cm fatty infiltration irregular contour Normal hepatopedal portal venous flow Patent IVC Right kidney 10.5 cm cortex 1.6 cm 14 mm lower pole cyst Left kidney 12.0 cm cortex 1.5 cm Mild renal parenchymal scar formation Spleen 11.3 cm IMPRESSION: Normal gallbladder Suspect primary hepatocellular disease
== END | disposition home or self-care (01) ==
LOC: CDIM 08:10
PROVIDERS: PCP Nurse Practitioner Family; Referring Provider Nurse Practitioner Family; Visit Provider Nurse Practitioner Family
DX: R10.9 Unspecified abdominal pain (principal)
CPT/HCPCS: 76700

== ENCOUNTER 2025-06-06 23:36 | Emergency (ER) | payer OTHER, SELFPAY ==
[2025-06-06 23:38] VITALS: BMI 27.8
[2025-06-07 00:01] VITALS: BP 134/64; PULSE 65; RESP 16; TEMP 36.3; O2SAT 96
--- NOTE | 2025-06-07 00:08 | XR_ITS ---
Examination: CT brain head without contrast. 2-D sagittal coronal reconstructions Date and time of exam:June 07, 2025, 0017 hours INDICATIONS: Headaches and dizziness today COMPARISON: 06/10/2018 CTDI: vol (mGy):58 DLP: (mGycm):1553 Technique: Multiple CT axial sections of the brain have been obtained, 5 mm slice thickness. Contrast has not been administered. 2-D sagittal, coronal reconstructions have been obtained Low dose protocols were performed. One or more of the following dose reduction techniques were used; automated exposure control, adjustment of the mA and/or KV according to patient size, use of iterative reconstruction technique. Findings: No significant ventricular enlargement. Intra-axial or extra-axial hemorrhage density is not seen. No mass effect or midline shift Basal cisterns are not remarkable. Fourth ventricle is midline. Cranial vault intact. Impression: Negative for acute hemorrhage, mass effect or midline shift Advise clinical correlation follow-up accordingly
[2025-06-07] MEDS: METOCLOPRAMIDE 5 MG TABLET 10 MG PO (00:21)
--- NOTE | 2025-06-07 01:17 | PRELIM_ITS ---
CT scan of the head without intravenous contrast (axial sections with sagittal and coronal reformats) June 07, 2025 0017 hours Clinical history: Headache and dizziness. No prior study is available for comparison. Findings: No evidence of acute intracranial hemorrhage, mass effect or midline shift. No definitive wedge shaped acute infarcts are detected. There is mild volume loss. There is atheromatous calcification of the intracranial arteries. The calvarium appears unremarkable. The mastoid air cells and the visualized paranasal sinuses are clear. Ligament and tendon calcifications are seen at C1-C2 level. Impression: No evidence of intracranial hemorrhage, mass effect or midline shift. If there are persistent clinical symptoms or additional clinical concerns, consider MRI. Mild volume loss. Report Electronically Signed By: Dawn Conway 06/07/2025 1:16:14 AM [EST]
--- NOTE | 2025-06-07 01:36 | PD.EDHA ---
ED Headache RME/HPI General Chief Complaint: Headache Stated Complaint: HEADACHE HX OF MIGRAIN SOMMER Time Seen by Provider: 06/07/25 00:07 Arrival date/time: 06/06/25 23:36 74M with history of DM, HTN, BPH, and migraines presents to ED with worse than usual SOMMER. Patient took his Maxalt, which improved SOMMER, but then it came back. Patient denies dizziness, fall/trauma, vision changes and N/V. Some light sensitivity. Limitations: no limitations Related Data Home Medications ?Medication ?Instructions ?Recorded ?Confirmed finasteride 5 mg tablet (Proscar) 5 mg PO QDAY #0 tabs 05/21/15 08/19/22 tamsulosin 0.4 mg capsule (Flomax) 0.4 mg PO BID ##0 05/23/15 08/19/22 montelukast 10 mg tablet 10 mg PO HS #0 tabs 05/01/16 08/23/22 (Singulair) atenolol 50 mg tablet (Tenormin) 50 mg PO QAM #0 tabs 10/16/17 08/23/22 atorvastatin 40 mg tablet (Lipitor) 40 mg PO HS #0 tabs 10/16/17 08/19/22 hydrochlorothiazide 25 mg tablet 25 mg PO QAM #0 tabs 10/16/17 06/04/22 metformin 1,000 mg tablet 1,000 mg PO BID #0 tabs 10/16/17 08/19/22 (Glucophage) nitroglycerin 0.4 mg sublingual 0.4 mg SL PRN PRN CHEST TIGHTNESS 10/16/17 08/19/22 tablet (Nitrostat) #0 tabs pregabalin 75 mg capsule (Lyrica) 75 mg PO BID 12/16/17 08/19/22 albuterol sulfate 90 mcg/actuation 2 puff inhalation Q6H PRN Wheezing 09/11/18 08/19/22 aerosol inhaler cyclobenzaprine 5 mg tablet 10 mg PO DAILY 09/11/18 08/19/22 lisinopril 5 mg tablet 5 mg PO QDAY 09/12/18 08/23/22 omeprazole 40 mg capsule,delayed 40 mg PO QDAY 07/17/21 08/19/22 release insulin detemir U-100 100 unit/mL 15 unit subcut QPM 11/04/21 08/19/22 subcutaneous solution (Levemir U-100 Insulin) naproxen 500 mg tablet 500 mg PO BID PRN Pain 11/04/21 08/19/22 sumatriptan succinate 25 mg tablet 25 mg PO Q2H PRN Migraine Headache 11/04/21 08/19/22 glipizide 5 mg tablet 5 mg PO BID 12/11/21 08/19/22 dulaglutide 1.5 mg/0.5 mL 1 ea subcut QWEEK 06/04/22 08/19/22 subcutaneous pen injector (Trulicity) Previous Rx's ?Medication ?Instructions ?Recorded cefdinir 300 mg capsule 300 mg PO BID #14 caps 04/23/25 Allergies Allergy/AdvReac Type Severity Reaction Status Date / Time levofloxacin Allergy Severe Rash Verified 06/06/25 23:43 Sulfa (Sulfonamide Allergy Severe Rash Verified 06/06/25 23:43 Antibiotics) ciprofloxacin Allergy Mild Rash Verified 06/06/25 23:43 Review of Systems Review of Systems Systems Reviewed: All systems reviewed, normal except as documented Constitutional Constitutional: Reports system reviewed and no additional complaints, except as documented, Reports as per HPI, Denies fever(s) and Reports headache(s) Eyes Eyes: Reports as per HPI and Reports photophobia ENT Ears, Nose, Mouth, and Throat: Denies disequilibrium and Reports headache(s) Cardiovascular Cardiovascular: Reports system reviewed and no additional complaints, except as documented, Denies chest pain and Denies dyspnea Respiratory Respiratory: Reports system reviewed and no additional complaints, except as documented, Denies cough and Denies dyspnea Gastrointestinal Gastrointestinal: Reports system reviewed and no additional complaints, except as documented, Denies abdominal pain, Denies nausea and Denies vomiting Neurologic Neurologic: Reports system reviewed and no additional complaints, except as documented, Denies confusion, Denies disequilibrium and Reports headache(s) Psychiatric Psychiatric: Denies confusion Past Medical History Past Medical History NEUROLOGIC: Positive Migraine (DUE TO SINUS ISSUES); Negative Neurological Disorders, Cerebrovascular Accident, Seizures or Epilepsy CARDIAC: Positive Cardiac Disorders, Hypercholesterolemia (TAKES MED) and Hypertension (TAKES ATENOLOL); Negative Myocardial Infarction, Congestive Heart Failure, Edema, Cellulitis or Varicose Veins RESPIRATORY: Positive Asthma (HAS INHALER); Negative Chronic Obstructive Pulmonary Disease (COPD), Pneumonia, Tuberculosis or Sleep Apnea GASTROINTESTINAL: Positive Gastrointestinal Disorders, Ulcer (TAKES OMEPRAZOLE) and Gastroesophageal Reflux Disease; Negative Hepatitis GENITOURINARY: Positive Genitourinary Disorders and Benign Prostatic Hyperplasia (TAKES MED); Negative Renal Disease MUSCULOSKELETAL: Positive Musculoskeletal Disorders, Arthritis and Carpal Tunnel Syndrome (LEFT 2011) ENDOCRINE: Positive Endocrine Disorders and Diabetes Mellitus Type 2 (TAKES PO MED AND INSULIN); Negative Diabetes Mellitus Type 1 HEMATOLOGIC: Negative Blood Disorders, Anemia or Leukemia PSYCHO/SOCIAL: Negative Depression, Anxiety or Post Traumatic Stress Disorder OTHER HISTORY: Positive Chicken Pox; Negative Hospitalization, Autoimmune Disease, Shingles, Falls, Blood Transfusions, Blood Transfusion Reaction, Anesthesia Reactions, Chemotherapy, Radiation Therapy, MRSA, Measles, Mumps or Cancer Family History FAMILY HISTORY: Positive Family Cardiac Disorders (MOTHER,FATHER,SISTER,BROTHER), Family Gastrointestinal Problems (FATHER (GERD?)) and Family Surgery (FATHER); Negative Family Psychiatric Problems, Family Respiratory Disorders, Family Cancer or Family Anesthesia Reaction Surgical History SURGICAL: Positive Carotid Endarterectomy (LEFT (CLOG ARTERY) 06/26 AT [facility]), Eye Surgery (RIGHT PTERYGIUM), Transurethral Resection (?) and Joint Replacement; Negative Pacemaker or Abdominal Surgery Social History SMOKING STATUS: Never smoker ED Exam General Limitations: Present no limitations General appearance: Present alert and in no apparent distress Head Head exam: Present atraumatic Eye Eye exam: Present normal appearance, PERRL and EOMI ENT ENT exam: Present normal exam, normal oropharynx and mucous membranes moist Neck Neck exam: Present normal inspection, full ROM and trachea midline Chest Chest inspection: Present normal inspection and symmetric chest wall rise Respiratory Respiratory exam: Present normal lung sounds bilaterally Cardiovascular Cardiovascular exam: Present regular rate, normal rhythm and normal heart sounds Abdominal Exam Abdominal exam: Present soft and normal bowel sounds Extremities Exam Extremities exam: Present normal inspection and full ROM Back Exam Back exam: Present normal inspection and full ROM Neurological Exam Neurological exam: Present alert, oriented X3 and CN II-XII intact Psychiatric Psychiatric exam: Present normal affect and normal mood Skin Skin exam: Present warm, dry, intact and normal color Course Quality Measures none Orders Category Date Time Status CT head/brain wo con Stat Exams 06/07/25 00:08 Taken Ketorolac Inj [Toradol Inj] Med 06/07/25 01:35 Discontinued 30 mg IM X1 ONE Metoclopramide [Reglan] Med 06/07/25 00:08 Discontinued 10 mg PO X1 ONE predniSONE Med 06/07/25 00:08 Discontinued 60 mg PO X1 ONE Vital Signs Vital signs: Vital Signs Temperature 97.3 F 06/07/25 00:01 Pulse Rate 65 06/07/25 00:01 Respiratory Rate 16 06/07/25 00:01 Blood Pressure 134/64 H 06/07/25 00:01 Pulse Oximetry (%) 96 06/07/25 00:01 Oxygen Delivery Method Room Air 06/07/25 00:01 O2 at 96% on RA and WNLs Headache MDM Narrative MDM Narrative:: 74M with history of DM, HTN, BPH, and migraines presents to ED with worse than usual SOMMER. Patient took his Maxalt, which improved SOMMER, but then it came back. Patient denies dizziness, fall/trauma, vision changes and N/V. Some light sensitivity. Physical exam reveals normal pupil response and EOM. CN II-XII grossly intact. Speech normal. Gait normal. Patient is afebrile, calm, and alert. Telerad CT report unremarkable. Meds improve dysmptoms. Patient data External records reviewed:: [facility] previous records Clinical information provided by:: patient Social determinants that could affect healthcare access:: none Patient has the following chronic illnesses:: DM, HTN, BPH, and migraines How is presenting disease/condition affected by chronic disease/condition?: exacerbated by Evaluation data The following diagnostics were reviewed and interpreted by me:: radiology exam(s) Lab and/or radiology exams considered but not ordered:: ordered Interpretation Summary: above Medications / Prescriptions Medications or Prescriptions considered but not ordered:: ordered Medication administrations:: Medication Administration History Discontinued Medications Ketorolac Tromethamine (Ketorolac Inj 60 Mg/2 Ml Vial) 30 mg IM X1 ONE Stop: 06/07/25 01:36 Last Admin: 06/07/25 02:13 Dose: 30 mg Documented By: ROSAURA Metoclopramide HCl (Metoclopramide 5 Mg Tablet) 10 mg PO X1 ONE Stop: 06/07/25 00:09 Last Admin: 06/07/25 00:21 Dose: 10 mg Documented By: JULISSA Prednisone (Prednisone 20 Mg Tablet) 60 mg PO X1 ONE Stop: 06/07/25 00:09 Last Admin: 06/07/25 00:21 Dose: 60 mg Documented By: JULISSA above Consultations Consultation(s) initiated? (list below): No Diagnosis Differential diagnosis headache: migraine, tension headache, subarachnoid hemorrhage, headache, meningitis, sinusitis and postconcussion syndrome Most likely diagnosis given after review of the tests above:: SOMMER Admission Indicated Admission indicated?: not indicated Admission Request Was there a request for admission?: No Disposition Plan Disposition Plan: Discharge Discharge Attestation Discharge Attestation: The patient and all family members were given an opportunity to ask questions and understood the discharge instructions. Discharge instructions specifically effects, indications for sooner follow up or return to the emergency department, and the expected course of current diagnosis. Patient condition: Stable Discharge Plan Plan Patient Disposition: HOME (Self Care) Discharge Disposition comment: Stable Prescriptions/Referrals Prescriptions/Med Rec: No Action finasteride [Proscar] 5 MG tablet 5 mg PO QDAY Qty: 0 tamsulosin [Flomax] 0.4 MG capsule,extended release 24hr 0.4 mg PO BID Qty: 0 montelukast [Singulair] 10 MG tablet 10 mg PO HS Qty: 0 atorvastatin [Lipitor] 40 MG tablet 40 mg PO HS Qty: 0 metformin [Glucophage] 1,000 MG tablet 1,000 mg PO BID Qty: 0 nitroglycerin [Nitrostat] 0.4 MG tablet, sublingual 0.4 mg SL PRN PRN (Reason: CHEST TIGHTNESS) Qty: 0 Rx Instructions: max 3 doses hydrochlorothiazide 25 MG tablet 25 mg PO QAM Qty: 0 atenolol [Tenormin] 50 MG tablet 50 mg PO QAM Qty: 0 pregabalin [Lyrica] 75 mg Capsule 75 mg PO BID sumatriptan succinate 25 mg Tablet 25 mg PO Q2H PRN (Reason: Migraine Headache) Levemir U-100 Insulin 100 unit/mL Solution 15 unit SUBCUT QPM Patient Comments: 15units in morning and 10 HS naproxen 500 mg Tablet 500 mg PO BID PRN (Reason: Pain) Trulicity 1.5 mg/0.5 mL pen injector 1 ea SUBCUT QWEEK Patient Comments: INJECT 1 PEN POR V A SUBCUT IZABELLA ONCE A WEEK albuterol sulfate 90 mcg/actuation Hfa Aerosol Inhaler 2 puff INHALATION Q6H PRN (Reason: Wheezing) cyclobenzaprine 5 mg Tablet 10 mg PO DAILY lisinopril 5 mg Tablet 5 mg PO QDAY omeprazole 40 mg Capsule,Delayed Release(/Ec) 40 mg PO QDAY glipizide 5 mg Tablet 5 mg PO BID cefdinir 300 mg capsule 300 mg PO BID Qty: 14 0RF Referrals: Adrián Carrillo MD [Primary Care Provider] - In 1 week Problem List Clinical Impression: Headache Patient/Caregiver Discharge Instructions Education Materials: Self-Care for Headaches Additional Instructions: Please follow-up with PCP within 24-48 hours and return immediately if symptoms worsen. Print Language: Barbadian Stand Alone Forms: Patient Portal Info Letter PA/RECYCLING DIRECTOR Supervising Physician PA/RECYCLING DIRECTOR Supervising Physician: Dr. Simental
[2025-06-07 02:09] VITALS: BP 144/69; PULSE 62; RESP 14; TEMP 37; O2SAT 99
[2025-06-07] MEDS: KETOROLAC INJ 60 MG/2 ML VIAL 30 MG IM (02:13)
== END 2025-06-07 02:15 | disposition home or self-care (01) ==
PROVIDERS: Emergency Provider Emergency Medicine; PCP Family Medicine
DX: R51.9 Headache, unspecified (principal)
CPT/HCPCS: 70450; 96372; 99283; J1885; J7512; A9270

== ENCOUNTER → 2025-08-30 | Outpatient (CLI) | payer OTHER, SELFPAY ==
--- NOTE | 2025-08-30 14:17 | XR_ITS ---
EXAMINATION: Spine 3 views TECHNIQUE: AP lateral: Lateral lower lumbar spine 3 views Date and time: August 30, 2025, 1442 hours INDICATIONS: Low back pain beginning 4 days ago radiating down the left leg COMPARISON: 06/27/2017 FINDINGS: Stable alignment lumbar fusion L3-L4 Advanced degenerative disc disease below the fusion site L4-L5 Moderate lumbar spondylosis No lumbar fracture IMPRESSION: Advanced degenerative disc disease L4-L5, progressed compared to the 2017 study
== END | disposition home or self-care (01) ==
LOC: CDIM 14:07
PROVIDERS: PCP Nurse Practitioner Family; Referring Provider Nurse Practitioner; Visit Provider Nurse Practitioner
DX: M51.360 Other intervertebral disc degeneration, lumbar region with discogenic back pain only (principal)
CPT/HCPCS: 72100

== ENCOUNTER → 2025-09-09 | Outpatient (CLI) | payer OTHER, SELFPAY ==
--- NOTE | 2025-09-09 08:15 | XR_ITS ---
Examination: MRI cervical spine without intravenous contrast Date and time of exam: September 09, 2025, 0834 hours INDICATIONS: Neck pain for years radiating to the extremities numbness in the extremities Technique: Multiple axial and sagittal sections of the cervical spine to been obtained. T2 weighted sagittal sections, TR 3, 270, TE 117 T1-weighted sagittal sections, TR 500, TE 11 T1-weighted axial sections, TR 607, TE 12, axial sections TR 18, TE 27 and T2 weighted transverse sections, TR 3920, TE 122. Findings: Patient motion degrades scan image quality Retrodisplacement, mild C5 relative to C4 No acute cervical fracture. Intact odontoid Advanced degenerative disc disease L5-S1 No localized enlargement cervical cord C2-C3 moderate right neuroforaminal stenosis C3-C4 advanced bilateral neuroforaminal stenosis C4-C5 3 mm central subarticular osteophyte disc complex, indenting ventral margin cervical cord, advanced bilateral neuroforaminal stenosis C5-C6 severe spinal stenosis, 5 mm central paracentral osteophyte disc complex, indenting the ventral margin cervical cord, advanced bilateral neuroforaminal stenosis C6-C7 moderate right neural foraminal stenosis and 2 mm central disc bulge C7-T1 no disc protrusion IMPRESSION: Severe spinal stenosis C5-C6, 5 mm central paracentral osteophyte disc complex, indenting ventral margin cervical cord, advanced bilateral neuroforaminal stenosis Additional spinal stenosis as above
== END | disposition home or self-care (01) ==
LOC: SMRI 07:46
PROVIDERS: Referring Provider Nurse Practitioner Family; Visit Provider Nurse Practitioner Family
DX: M48.02 Spinal stenosis, cervical region (principal); M25.78 Osteophyte, vertebrae
CPT/HCPCS: 72141